=== PATIENT | female | born 1950 | race Two or more races ===

== ENCOUNTER 2019-11-13 06:40 | Inpatient (IN) | payer MEDICARE ==
[~2019-11-13] VITALS: Ht 165.1 cm; Wt 72.6 kg
--- NOTE | 2019-11-13 09:25 | NUR ---
PATIENT C/O ABDOMINAL PAIN, MADE MD AWARE, RECEIVED VERBAL ORDER OF MORPHINE 4MG IVP, CARRIED OUT
[2019-11-13] MEDS ORDERED: IOHEXOL-300 100 ML VIAL IV ONE (09:31)
[2019-11-13] MEDS ORDERED: CT SWABBABLE VALVE TRANS SET 1 EA INFUS.SET MC ONE (09:31)
[2019-11-13] MEDS ORDERED: IV NS 0.9% 250 ML IV ONE (09:31)
[2019-11-13] MEDS ORDERED: CEFAZOLIN 1 GM in IV D5W 50 ML IV ONE (10:00)
--- NOTE | 2019-11-13 10:08 | NUR ---
SURGERY CALLED 1045 WILL BE PICKED UP. 1100 IS THE SURGERY.
--- NOTE | 2019-11-13 10:22 | NUR ---
DR. WHITE AT BEDSIDE
[2019-11-13] MEDS ORDERED: IV NS 0.9% 1,000 ML BAG IV ONE (10:30)
--- NOTE | 2019-11-13 10:30 | NUR ---
PATIENT SIGNED CONSENT FOR SURGERY, BLOOD TRANSFUSION AND ANESTHESIA.
[2019-11-13] MEDS ORDERED: BUPIVACAINE 0.5 % PF 150 MG/30 ML VIAL ONE ×2 (10:36→11:26)
--- NOTE | 2019-11-13 10:40 | NUR ---
WHEELED OUT VIA [employer] BY OR [employer].
[2019-11-13] MEDS ORDERED: FENTANYL PF 250MCG/5ML AMPUL ONE (10:41)
[2019-11-13] MEDS ORDERED: FAMOTIDINE/PF INJ 20 MG/2 ML VIAL IV ONE (10:41)
[2019-11-13] MEDS ORDERED: MIDAZOLAM HCL 2 MG/2ML VIAL ONE (10:41)
[2019-11-13] MEDS ORDERED: ROCURONIUM BROMIDE 50 MG/5 ML ONE (10:42)
[2019-11-13 10:43] LABS: WHITE BLOOD COUNT (AUTO) 8.5 K/uL (4.3-11.0)
[2019-11-13 10:44] LABS: BASOPHILS % (AUTO) 0.3 % (0.0-2.0); EOSINOPHILS % (AUTO) 0.2 % (0.0-6.0); HEMATOCRIT 37 % (33-45); HEMOGLOBIN 11.9 g/dL (11.5-14.8); LYMPHOCYTES # (AUTO) 1.3 /CMM (0.8-4.8); LYMPHOCYTES % (AUTO) 15.6 % (20.0-44.0); MEAN CORPUSCULAR HGB CONC 33 g/dl (31.0-36.0); MEAN CORPUSCULAR VOLUME 82 fL (82-100); MONOCYTES # (AUTO) 0.3 /CMM (0.1-1.30); MONOCYTES % (AUTO) 3.4 % (2.0-12.0); NEUTROPHILS # (AUTO) 6.9 /CMM (1.8-8.9); NEUTROPHILS % (AUTO) 80.5 % (43.0-81.0); PLATELET COUNT (AUTO) 152 /CMM (150-450); RED BLOOD CELL COUNT(AUTO) 4.45 MIL/uL (4.0-5.2)
[2019-11-13 10:48] LABS: APPEARANCE,URINE CLEAR (CLEAR); BILIRUBIN,URINE NEGATIVE (NEGATIVE); BLOOD, URINE NEGATIVE Ery/uL (NEGATIVE); COLOR,URINE YELLOW (YELLOW); KETONES,URINE TRACE (NEGATIVE); PROTEIN,URINE NEGATIVE (NEGATIVE); UGLUCOSE NEGATIVE (NEGATIVE)
[2019-11-13 10:49] LABS: LEUKOCYTE ESTERASE ,URINE NEGATIVE (NEGATIVE); NITRITE, URINE NEGATIVE (NEGATIVE); UROBILINOGEN,URINE 0.2 EU/dL (0.2)
[2019-11-13] MEDS ORDERED: CLINDAMYCIN 900 MG/6 ML VIAL ONE (11:06)
[2019-11-13] MEDS ORDERED: LEVOFLOXACIN 500 MG /D5W 100ML 100 ML IV ONE (11:30)
[2019-11-13] MEDS ORDERED: METRONIDAZOLE 500MG/ NS 100ML 100 ML IV ONE (11:30)
[2019-11-13 12:01] LABS: CALCIUM, SERUM 9.1 mg/dL (8.5-10.1); POTASSIUM 3.3 mmol/L (3.5-5.1)
[2019-11-13 12:02] LABS: ALBUMIN 3.7 g/dL (3.4-5.0); BILIRUBIN,TOTAL 0.4 mg/dL (0.2-1.0); CREATININE 0.9 mg/dL (0.6-1.3); TOTAL PROTEIN, SERUM 6.8 g/dL (6.4-8.2)
[2019-11-13 12:35] VITALS: BP 118/55
--- NOTE | 2019-11-13 12:35 | NUR ---
ADMISSION NOTE PT WAS BROUGHT IN AT THIS TIME VIA GURNEY FROM SURGERY, S/P LAPAROSCOPIC APPENDECTOMY NOTED WITH 3 ABDOMINAL INCISIONS. PT IS A/O X4 BREATHING EVEN AND UNLABORED VIA 3L VIA NC WITH NO DISTRESS AT THIS TIME. PT DOES COMPLAIN OF ABDOMINAL PAIN 5 OUT OF 10 AT THIS TIME. RIGHT AC GAUGE 18 IV IS PATENT AND INTACT WITH IVF RUNNING. PT CURRENTLY RESTING IN BED AND PER PT SHE IS ABLE TO AMBULATE BUT USUALLY USES A CANE AT HOME. HOSPITALIST DR. JOZEF RODRIGUES MADE AWARE THAT PT IS ON THE FLOOR. SAFETY PRECAUTIONS IN PLACE, CALL LIGHT IN REACH, WILL MONITOR ACCORDINGLY.
[2019-11-13] MEDS ORDERED: ZOLPIDEM TARTRATE 5 MG TABLET PO PRN ×2 (13:00→14:30)
[2019-11-13] MEDS ORDERED: MORPHINE SULFATE INJ 2 MG/ML DISP.SYRIN IV PRN (13:00)
[2019-11-13] MEDS ORDERED: HYDROCODONE/APAP 5/325MG 1 EACH TABLET PO PRN (13:00)
--- NOTE | 2019-11-13 13:02 | NUR ---
RN NOTE MADE AWARE OF PT ALLERGY TO NORCO, PER START PT ON PERCOCET INSTEAD. WILL IMPLEMENT AND CARRYOUT ACCORDINGLY
--- NOTE | 2019-11-13 13:40 | NUR ---
RN NOTE PRN MORPHINE GIVEN AT THIS TIME, WILL MONITOR ACCORDINGLY
[2019-11-13] MEDS: IV D5/0.45 NACL W/20 MEQ KCL 1L IV PRN ×2 (14:09)
[2019-11-13] MEDS ORDERED: ONDANSETRON HCL/PF 4 MG/2 ML VIAL IVP PRN (14:30)
[2019-11-13] MEDS ORDERED: MAG HYDROX/AL HYDROX/SIMETH 30 ML UDC PO PRN (14:30)
[2019-11-13] MEDS ORDERED: MAGNESIUM HYDROXIDE 30 ML UDC PO PRN (14:30)
--- NOTE | 2019-11-13 14:41 | NUR ---
RN NOTE ER CALLED AT THIS TIME AND NOTIFIED OF NEEDING MED RECON NURSE, BUSINESS AND FINANCIAL COUNSEL SAID THEY WILL SEND HIM UP SOON THEY ARE AVAILABLE
--- NOTE | 2019-11-13 15:07 | NUR ---
RN NOTE CALL RECEIVED FROM ER, MED RECON NURSE WILL COME LATER ONCE HE IS DONE WITH THE ER, WILL AWAIT ARRIVAL
[2019-11-13] MEDS ORDERED: OXYB5TAB16 PO (15:31)
[2019-11-13] MEDS ORDERED: MONT10TA22 PO (15:31)
[2019-11-13] MEDS ORDERED: FLUT1BLS IH (15:31)
[2019-11-13] MEDS ORDERED: BUDE10.22 IH (15:31)
[2019-11-13] MEDS ORDERED: BACL10TA PO (15:31)
[2019-11-13] MEDS ORDERED: GLAT40SY SQ (15:31)
[2019-11-13] MEDS ORDERED: TRAZ-182 PO (15:31)
[2019-11-13] MEDS ORDERED: VALA500T36 PO (15:36)
[2019-11-13] MEDS ORDERED: MECL-102 PO (15:41)
[2019-11-13 16:00] VITALS: BP 103/52
[2019-11-13] MEDS: METRONIDAZOLE 500MG/ NS 100ML 500 MG in PREMIX 1 EA IV SCH (17:03)
--- NOTE | 2019-11-13 18:41 | NUR ---
RN CLOSING NOTE PT IN BED AT LOWEST AND LOCKED POSITION WITH SIDE RAILS UP X2, A/O X4 BREATHING EVEN AND UNLABORED ON RA, NO S/S OF ANY DISTRESS OR PAIN AT THIS TIME, IV IS PATENT AND INTACT, ALL NEEDS ATTENDED TO, SAFETY PRECAUTIONS IN PLACE, CALL LIGHT IN REACH, WILL ENDORSE TO NIGHT RN FOR NATASHA.
--- NOTE | 2019-11-13 19:15 | NUR ---
rn initial notes: received report from pushpa murillo. pt in bed, a/o x4, on ra respirations evena nd unlabored, denies any pain but reported nausea. s/p lap appendectomy by dr sheth with 3 gal noted on abdomen area. abdomen soft to touch with active bowel sound heard upon auscultation. pt claimed she's passing gas. iv noted to be leaking, restarted new iv on left hand g 24, pt has rolling vein. good blood return noted, tegaderm applied, appropriate labels attached. pt connected back to ivf as ordered, d5 1/2 ns with 20 meq kcl at 100ml/hr. discussed plan of care tonight. all question and concerns answered. safety precautions for fall initiated, call light in reach, will continue monitoring pt.
[2019-11-13 20:00] VITALS: BP 102/57
--- NOTE | 2019-11-13 20:00 | NUR ---
rn notes: pt stated she been taking tylenol/acetaminophen and no reaction or adverse effect happened to her.
--- NOTE | 2019-11-13 20:01 | NUR ---
prn zofran: pt c/o nausea, prn zofran 4mg ivp administered at this time.
[2019-11-13] MEDS: ACETAMINOPHEN 325 MG TABLET PO PRN (20:15)
--- NOTE | 2019-11-13 20:15 | NUR ---
prn tylenol: pt temp 102, cooling measures provided, on iv hydration, on iv atb as scheduled, prn tylenol 650 mg tab administered with sips of water
--- NOTE | 2019-11-13 20:31 | NUR ---
rn notes: contacted epic md zoning technician, spoked with dr ro calderon, regarding pt's request to take her night time home medications. per okay t/o okay to give baclofen 20mg po q12hrs, singulair 10 mg po hs and trazodone 250 mg po hs" and have day hospitalist reconcile meds in am. orders read back, verified and carried out.
[2019-11-13] MEDS: BACLOFEN (10 MG) 10 MG TABLET PO SCH (21:03)
[2019-11-13 21:59] VITALS: BP 113/48
[2019-11-13] MEDS ORDERED: TRAZODONE 50 MG TABLET PO SCH (22:00)
[2019-11-13] MEDS ORDERED: MONTELUKAST SODIUM (10MG) 10 MG TABLET PO SCH (22:00)
[2019-11-13] MEDS: oxyCODONE/APAP (5/325 MG) 1 UDTAB TABLET PO PRN (22:13)
--- NOTE | 2019-11-13 22:13 | NUR ---
PRN PERCOCET: PT C/O ABDOMINAL TENDERNESS, 04/06 REQUESTING FOR PAIN MEDICATION. VS TAKENAND RECORDED, ON LOW 100''S, HOSPITALIST CURRENTLY IN THE UNIT, RELAYED TREAND OF PT'S BP, PER MD PLEASE OFFER PERCOCET, NOT COMFORTABLE GIVING IV MORPHINE. HOSPITALIST MADE AWARE PT ALREADY ON IV HYDRATION AT 100ML/HR, AND IV ATB. PER MD, CONTINUE MONITORING VS. PT AGREE TO TAKE PERCOCET. EDUCATE REGARDING MEDICATION SIDE EFFECT.
--- NOTE | 2019-11-13 22:47 | NUR ---
RN NOTES: DEPALLETIZER OPERATOR ASSISTED PT TO THE RESTROOM. VOIDED FREELY, PLACED HAT CONTAINER IN TOILET BOWL IN ORDER TO ACCURATELY MEASURE THE URINE.
[2019-11-14] MEDS: METRONIDAZOLE 500MG/ NS 100ML 500 MG in PREMIX 1 EA IV SCH ×3 (01:10→18:00)
[2019-11-14] MEDS: IV D5/0.45 NACL W/20 MEQ KCL 1L IV PRN ×2 (01:11)
[2019-11-14] MEDS: oxyCODONE/APAP (5/325 MG) 1 UDTAB TABLET PO PRN ×3 (04:51→17:01)
--- NOTE | 2019-11-14 04:51 | NUR ---
prn percocet: pt c/o moderate pain 6/10 abdomen area, cramping and tender, requesting for percocet, prn percocet administered at this time. per md roque to0 give the medication for moderate pain level, no iv morphine due to episode of low bp on 100's.
[2019-11-14 06:39] LABS: BASOPHILS % (AUTO) 0.1 % (0.0-2.0); EOSINOPHILS % (AUTO) 0.1 % (0.0-6.0); HEMATOCRIT 33 % (33-45); HEMOGLOBIN 10.8 g/dL (11.5-14.8); LYMPHOCYTES # (AUTO) 1.4 /CMM (0.8-4.8); LYMPHOCYTES % (AUTO) 14.2 % (20.0-44.0); MEAN CORPUSCULAR HGB CONC 33 g/dl (31.0-36.0); MEAN CORPUSCULAR VOLUME 82 fL (82-100); MONOCYTES # (AUTO) 0.6 /CMM (0.1-1.30); MONOCYTES % (AUTO) 5.8 % (2.0-12.0); NEUTROPHILS # (AUTO) 8.2 /CMM (1.8-8.9); NEUTROPHILS % (AUTO) 79.8 % (43.0-81.0); PLATELET COUNT (AUTO) 131 /CMM (150-450); RED BLOOD CELL COUNT(AUTO) 3.98 MIL/uL (4.0-5.2); WHITE BLOOD COUNT (AUTO) 10.2 K/uL (4.3-11.0)
--- NOTE | 2019-11-14 06:44 | NUR ---
RN CLOSING NOTES: PRN PERCOCET ADMINISTERED FOR C/O ABDL TENDERNESS. PRN TYLENOL GIVEN FOR FEVER LAST NIGHT. IV ACCESS REMAINS PATENT AND FLUSHING WELL INFUSING WITH IVF ORDERED. NO S/S OF IV INFILTRATION NOTED. PT ABLE TO VOID FREELY. ABDOMEN REMAINS SOFT TO TOUCH, WITH ACTIVE BOWEL SOUND HEARD UPON AUSCULTATION. ABDL LENARD REMAINS IN PLACED, NO S/S OF ACTIVE BLEEDING NOTED. VS REMAINS STABLE, NEEDS ATTENDED.SAFETY PRECAUTIONS FOR FALL REMAINS ENGAGED, CALL LIGHT IN REACH, WILL ENDORSE TO DAY RN FOR CONTINUITY OF CARE.
[2019-11-14 07:04] LABS: THYROID STIMULATING HORMONE 0.665 uIU/mL (0.358-3.74)
[2019-11-14 07:06] LABS: CALCIUM, SERUM 8.3 mg/dL (8.5-10.1); CREATININE 0.9 mg/dL (0.6-1.3); MAGNESIUM 1.6 mg/dL (1.8-2.4); PHOSPHORUS 3.2 mg/dL (2.5-4.9); POTASSIUM 3.7 mmol/L (3.5-5.1)
[2019-11-14 08:00] VITALS: BP 96/50
--- NOTE | 2019-11-14 08:00 | NUR ---
MS 2 RN OPENING NOTES: ALERT AND ORIENTED X4. AMBULATES AD ELIEZER WITH STEADY GAIT.IV ACCESS REMAINS PATENT AND FLUSHING WELL INFUSING WITH IVF ORDERED. NO S/S OF IV INFILTRATION NOTED. PT ABLE TO VOID FREELY. ABDOMEN REMAINS SOFT TO TOUCH, WITH ACTIVE BOWEL SOUND HEARD UPON AUSCULTATION.TOLERATED SOFT DIET MEAL FOR BREAKFAST.DENIES FEELING NAUSEOUS. ABDL SURGICAL LENARD REMAINS IN PLACED, NO S/S OF ACTIVE BLEEDING NOTED. VS REMAINS STABLE,SAFETY PRECAUTIONS FOR FALL REMAINS ENGAGED, CALL LIGHT IN REACH,
[2019-11-14] MEDS: BACLOFEN (10 MG) 10 MG TABLET PO SCH (08:18)
[2019-11-14] MEDS: LEVOFLOXACIN 500 MG /D5W 100ML 500 MG in PREMIX 1 EA IV SCH ×2 (11:00→11:53)
--- NOTE | 2019-11-14 11:15 | NUR ---
UNHOOKED PT FROM HER IV ATB TEMPORARILY BEFORE GOING TO THE TOILET.PT WANTED TO FRESHEN UP AND WANT TO BE UNHOOKED ON HER IV FOR THE MEANTIME DELAYING THE ATB INFUSION OF LEVAQUIN.
[2019-11-14] MEDS ORDERED: METR500T PO (11:29)
[2019-11-14] MEDS ORDERED: LEVO500T75 PO (11:29)
[2019-11-14] MEDS: Magnesium 1GM/D5W 100ML PREMIX 100 ML IV SCH ×2 (12:46→14:12)
[2019-11-14 15:48] VITALS: BP 119/62
--- NOTE | 2019-11-14 17:00 | NUR ---
REMOVED PT'S IV H/L TO LT HAND DUE TO THE PENDING DISCHARGE.FINISH OPENER WILL SEE THE PT.
--- NOTE | 2019-11-14 17:09 | NUR ---
PT IS C/O THAT SHE FEELS SICK.ASKED FOR 5 BLANKETS AND WANTS HER TEMP CHECKED WHICH WAS EXPECTED TO HAVE MILD FEVER T 100.3 DUE TO THE 5 HOT BLANKETS SHE HAS ON.EXPLAINED TO THE PT THE CAUSES OF FEVER.ENCOURAGED PT TO DRINK LOTS OF FLUIDS.CLAUDIA SANDY CAME TO SEE THE PT AND PT WANTED TO HAVE A CAREGIVER AT HOME TO TAKE CARE OF HER.PT LIVES BY HERSELF ALONE IN HER HOME.CLAUDIA FULLER COORDINATED WITH AGENCY TO SEE THE PT.
--- NOTE | 2019-11-14 18:30 | NUR ---
RECHECKED PT'S TEMP 99.3.PT IS READY FOR DISCHARGE AND IS AWAITING FOR MOBILE MARKETING MANAGER BY CAREGIVER BY 1999.PT'S FRIEND AND LEFT TO MOBILE MARKETING MANAGER PT'S PRESCRIBED ANTIBIOTICS.ENCOURAGED FLUIDS.
--- NOTE | 2019-11-14 19:10 | NUR ---
MS/RN NOTES RECEIVED PT. SITTING DOWN IN CHAIR. PT. IS AWAKE, ALERT AND ORIENTED X4. BREATHING EVEN AND UNLABORED ON ROOM AIR. NO SOB, RESPIRATORY DISTRESS OR COMPLAINTS OF PAIN NOTED AT THIS TIME. PER DAYSHIFT NURSE PT. IS DISCHARGED AND AWAITING BOOKER FROM CAREGIVER. PER DAYSHIFT NURSE PT. DISCHARGE PAPERWORK AND EXITCARE COMPLETED, BELONGINGS LIST COMPLETED, ORIGINAL SIGNED AND PLACED IN PT. CHART. COPY PROVIDED TO PT. EDUCATED PT. ON CALLING FOR ASSISTANCE BEFORE AMBULATING. PT. VERBALIZED UNDERSTANDING. WILL CONTINUE TO MONITOR.
[2019-11-14] MEDS: ACETAMINOPHEN 325 MG TABLET PO PRN (20:14)
--- NOTE | 2019-11-14 20:32 | NUR ---
MS/RN NOTES PT. IS AWAKE, ALERT AND ORIENTED X4. BREATHING EVEN AND UNLABORED ON ROOM AIR. NO SOB, RESPIRATORY DISTRESS OR COMPLAINTS OF PAIN NOTED AT THIS TIME. PT. VITAL SIGNS STABLE. PT. DISCHARGE PAPERWORK AND EXITCARE COMPLETED, BELONGINGS LIST COMPLETED, ORIGINAL SIGNED AND PLACED IN PT. CHART. COPY PROVIDED TO PT. ALL BELONGINGS PRESENT WITH PT. PT. CAREGIVER PRESENT AT BEDSIDE. PT. LEFT THE FLOOR VIA WHEELCHAIR IN STABLE CONDITION AT 2031 ESCORTED BY JOY LOADER AND CAREGIVERS.
== END 2019-11-14 20:32 | disposition home or self-care (01) | DRG 343 ==
LOC: ER 06:40 → MEDSG2 12:51
PROC: 0DTJ4ZZ Resection of Appendix, Percutaneous Endoscopic Approach (ICD-10-PCS; principal; 2019-11-13)
DX: K35.30 Acute appendicitis with localized peritonitis, without perforation or gangrene (principal); E87.6 Hypokalemia; G35 Multiple sclerosis; Z90.710 Acquired absence of both cervix and uterus; K66.0 Peritoneal adhesions (postprocedural) (postinfection); M46.00 Spinal enthesopathy, site unspecified
CPT/HCPCS: 36415; 80048-TC; 80053-TC; 80061-TC; 81000-TC; 82150-TC; 83690-TC; 83735-TC; 84100-TC; 84443-TC; 84484-TC; 85025-TC; 87070-TC; 87075-TC; 87081-TC; 87186-TC; 88304-TC; A4216; G0378; J0690; J1956; J2250; J2270; J2405; J2704; J2710; J2765; J3010; J3475; J3480; J3490; J7050; J7060; Q9967